=== PATIENT | male | born 1980 | race Caucasian/White ===

== ENCOUNTER → 2019-08-05 07:42 | Outpatient (BNVA) | payer MEDICAID, SELFPAY | PROVIDERS: Family Provider Family Medicine; PCP Family Medicine; Visit Provider Nurse Practitioner Psychiatric/Mental Health | DX: F31.64 Bipolar disorder, current episode mixed, severe, with psychotic features (principal); F43.12 Post-traumatic stress disorder, chronic; F78 Other intellectual disabilities; F40.298 Other specified phobia | CPT/HCPCS: 99214 ==

== ENCOUNTER → 2019-10-15 08:38 | Outpatient (BNVA) | payer MEDICAID, SELFPAY | PROVIDERS: Family Provider Family Medicine; PCP Family Medicine; Visit Provider Nurse Practitioner Psychiatric/Mental Health | DX: F31.64 Bipolar disorder, current episode mixed, severe, with psychotic features (principal); F43.12 Post-traumatic stress disorder, chronic; F78 Other intellectual disabilities; F40.298 Other specified phobia | CPT/HCPCS: 99213 ==

== ENCOUNTER → 2020-01-06 07:18 | Outpatient (BNVA) | payer MEDICAID, SELFPAY | PROVIDERS: Family Provider Family Medicine; PCP Family Medicine; Visit Provider Nurse Practitioner Psychiatric/Mental Health | DX: F31.64 Bipolar disorder, current episode mixed, severe, with psychotic features (principal); F43.12 Post-traumatic stress disorder, chronic; F78 Other intellectual disabilities; F40.298 Other specified phobia | CPT/HCPCS: 99214 ==

== ENCOUNTER 2020-01-14 07:18 | Outpatient (CLI) | payer MEDICAID, SELFPAY ==
--- NOTE | 2020-01-14 08:00 | US_ITS ---
WS: [id number] ULTRASOUND RENAL TECHNIQUE: Ultrasound examination of both kidneys. CLINICAL INFORMATION: RENAL U/S@[facility] 01/14/20 9:30AM. APPT TO FOLLOW COMPARISON: None. FINDINGS: RIGHT: Right kidney is normal in size and appearance. Echogenicity: Normal. Cortical thickness: 1.1 cm; Normal. Hydronephrosis: None. Perinephric fluid: None. Right kidney measures: 12.0 cm x 5.5 cm x 5.9 cm. LEFT: Small left renal cyst millimeters Left kidney is normal in size and appearance. Echogenicity: Normal. Cortical thickness: 1.6 cm; Normal. Hydronephrosis: None. Perinephric fluid: None. Left kidney measures: 10.9 cm x 5.2 cm x 5.5 cm. Normal visualized aorta. Normal bladder. Prostate visualized measuring 3.5 x 2.0 cm. US/US renal BI* [id number] IMPRESSION: Normal renal ultrasound. Small left renal cyst 10millimeters.
== END 2020-01-14 07:19 | disposition home or self-care (01) ==
LOC: US 07:18
PROVIDERS: PCP Family Medicine; Visit Provider Urology
DX: N28.89 Other specified disorders of kidney and ureter (principal); N28.1 Cyst of kidney, acquired
CPT/HCPCS: 76770; 81001

== ENCOUNTER → 2020-02-04 07:34 | Outpatient (BNVA) | payer MEDICAID, SELFPAY | PROVIDERS: PCP Family Medicine; Visit Provider Nurse Practitioner Psychiatric/Mental Health | DX: F31.64 Bipolar disorder, current episode mixed, severe, with psychotic features (principal); F43.12 Post-traumatic stress disorder, chronic; F78 Other intellectual disabilities; F40.298 Other specified phobia; F60.3 Borderline personality disorder | CPT/HCPCS: 99213 ==

== ENCOUNTER → 2020-04-28 07:31 | Outpatient (BNVA) | payer MEDICAID, SELFPAY | PROVIDERS: PCP Family Medicine; Visit Provider Nurse Practitioner Psychiatric/Mental Health | DX: F31.64 Bipolar disorder, current episode mixed, severe, with psychotic features (principal); F43.12 Post-traumatic stress disorder, chronic; F78 Other intellectual disabilities; F40.298 Other specified phobia | CPT/HCPCS: 99213 ==

== ENCOUNTER 2020-07-15 07:33 | Outpatient (CLI) | payer MEDICAID, SELFPAY ==
--- NOTE | 2020-07-15 07:39 | CT_ITS ---
WS: [id number] CT ABDOMEN PELVIS TECHNIQUE: Noncontrast CT of the abdomen and contrast-enhanced CT of the abdomen and pelvis with stefanie nal and sagittal reformatted images. CLINICAL INFORMATION: hematuria COMPARISON: and ultrasound January 14, 2020 DLP: 4971.[address] scans at [facility] use at least one of these dose optimization techniques: automat ed exposure control; mA and/or kV adjustment per patient size (includes targeted exams where dose is matched to clinical indication); or iterative reconstruction. FINDINGS: Cortical exophytic lesion upper pole left kidney measuring 10 mm unchanged in appearance. This is too small to definitively characterize and recommend continued surveillance. Stable 12 mm left simple cyst mid pole left kidney is unchanged. Stable left adrenal lesion measuring 2.1 cm technically indeterminant but likely adrenal adenoma. No hydronephrosis in either kidney. Nor mal renal parenchymal enhancement. Diffuse fatty infiltration of the liver. Previously described area of decreased attenuation in the po rta hepatis no longer present today. Normal portal vein and splenic vein. Normal spleen. Normal GE ju nction. Lung bases are well aerated. Normal pancreas. Normal caliber abdominal aorta. Normal excretion on the delayed images. Normal bladder. Normal sigmoid colon. Mild disc bulging L5-S1 with degenerative disc disease. CT/CT abdomen pelvis wo/w [id number] IMPRESSION: 1. Low-attenuation cortical lesion upper pole left kidney medially appears unc hanged measuring 10 mm. This is too small to definitively characterize. Recomme nd continued surveillance. 2. Stable 12 mm simple cyst mid pole left kidney laterally. 3. No hydronephrosis in either kidney. 4. Stable 2.0 cm with adrenal lesion technically indeterminant but likely repr esents adrenal adenoma. 5. Diffuse fatty infiltration the liver. Previously described low-attenuation area in the erika hepatis has resolved. 6. No other significant changes from previous.
[2020-07-15] MEDS: iohexol 300 mg/mL 100 mL Btl IV (08:21)
== END 2020-07-15 07:34 | disposition home or self-care (01) ==
LOC: CT 07:34
PROVIDERS: PCP Family Medicine; Visit Provider Urology
DX: R31.9 Hematuria, unspecified (principal); N28.9 Disorder of kidney and ureter, unspecified; N28.1 Cyst of kidney, acquired; K76.0 Fatty (change of) liver, not elsewhere classified
CPT/HCPCS: 74178; 81003

== ENCOUNTER → 2020-08-11 07:34 | Outpatient (BNVA) | payer MEDICAID, SELFPAY | PROVIDERS: PCP Family Medicine; Visit Provider Nurse Practitioner Psychiatric/Mental Health | DX: F31.64 Bipolar disorder, current episode mixed, severe, with psychotic features (principal); F43.12 Post-traumatic stress disorder, chronic; F78 Other intellectual disabilities; F40.298 Other specified phobia; Z79.899 Other long term (current) drug therapy | CPT/HCPCS: 99214 ==

== ENCOUNTER → 2020-08-13 07:59 | Outpatient (BNVA) | payer MEDICAID, SELFPAY | PROVIDERS: PCP Family Medicine; Visit Provider Nurse Practitioner Psychiatric/Mental Health | DX: Z79.899 Other long term (current) drug therapy (principal) | CPT/HCPCS: 80053; 80061; 83036 ==

== ENCOUNTER → 2020-11-03 13:49 | Outpatient (BNVA) | payer MEDICAID, SELFPAY | PROVIDERS: PCP Family Medicine; Visit Provider Nurse Practitioner Psychiatric/Mental Health | DX: F31.64 Bipolar disorder, current episode mixed, severe, with psychotic features (principal); F43.12 Post-traumatic stress disorder, chronic; F78 Other intellectual disabilities; F40.298 Other specified phobia | CPT/HCPCS: 99214 ==

== ENCOUNTER → 2021-01-28 07:27 | Outpatient (BNVA) | payer MEDICAID, SELFPAY | PROVIDERS: PCP Family Medicine; Visit Provider Nurse Practitioner Psychiatric/Mental Health | DX: F31.64 Bipolar disorder, current episode mixed, severe, with psychotic features (principal); F43.12 Post-traumatic stress disorder, chronic; F78 Other intellectual disabilities; F40.298 Other specified phobia | CPT/HCPCS: 99214 ==

== ENCOUNTER → 2021-04-29 06:55 | Outpatient (BNVA) | payer MEDICAID, SELFPAY | PROVIDERS: PCP Family Medicine; Visit Provider Nurse Practitioner Psychiatric/Mental Health | DX: F31.64 Bipolar disorder, current episode mixed, severe, with psychotic features (principal); F43.12 Post-traumatic stress disorder, chronic; F40.298 Other specified phobia | CPT/HCPCS: 99214 ==

== ENCOUNTER → 2021-07-22 07:29 | Outpatient (BNVA) | payer MEDICAID, SELFPAY | PROVIDERS: PCP Family Medicine; Visit Provider Nurse Practitioner Psychiatric/Mental Health | DX: F31.64 Bipolar disorder, current episode mixed, severe, with psychotic features (principal); F43.12 Post-traumatic stress disorder, chronic; F40.298 Other specified phobia | CPT/HCPCS: 99214 ==

== ENCOUNTER → 2021-10-21 07:43 | Outpatient (BNVA) | payer MEDICAID, SELFPAY | PROVIDERS: PCP Family Medicine; Visit Provider Nurse Practitioner Psychiatric/Mental Health | DX: F31.64 Bipolar disorder, current episode mixed, severe, with psychotic features (principal); F43.12 Post-traumatic stress disorder, chronic; F40.298 Other specified phobia; Z79.899 Other long term (current) drug therapy | CPT/HCPCS: 80053; 80061; 82306; 83036; 84443; 99214 ==

== ENCOUNTER → 2021-12-02 08:38 | Outpatient (BNVA) | payer MEDICAID, SELFPAY | PROVIDERS: PCP Family Medicine; Visit Provider Nurse Practitioner Psychiatric/Mental Health | DX: F31.64 Bipolar disorder, current episode mixed, severe, with psychotic features (principal); F43.12 Post-traumatic stress disorder, chronic; F40.298 Other specified phobia; Z79.899 Other long term (current) drug therapy | CPT/HCPCS: 99214 ==

== ENCOUNTER 2022-07-12 08:31 | Outpatient (CLI) | payer MEDICAID, SELFPAY ==
[2022-07-12] MEDS: iohexol 350 mg/mL 500 mL Btl (per mL) IV (09:01)
--- NOTE | 2022-07-12 09:30 | CT_ITS ---
WS: [id number] CT ABDOMEN PELVIS TECHNIQUE: Noncontrast CT of the abdomen and contrast-enhanced CT of the abdomen and pelvis with stefanie nal and sagittal reformatted images. CLINICAL INFORMATION: Renal Mass COMPARISON: CT abdomen pelvis July 15, 2020 and DLP: 4098.[address] scans at [facility] use at least one of these dose optimization techniques: automated e xposure control; mA and/or kV adjustment per patient size (includes targeted exams where dose is matc hed to clinical indication); or iterative reconstruction. FINDINGS: Normal renal parenchymal enhancement. No hydronephrosis. LEFT renal cyst measuring 1.5 x 1.7 CM. Inde terminant solid appearing complex renal mass lower pole LEFT kidney measuring 2.1 x 1.9 CM. This is n ew or progressed compared to the prior examination suspicious for neoplasm. Additional smaller tiny renal cortical cysts some too small to characterize. No obstructing renal or ureteral calculi. Adrenal glands are normal. Normal excretion on the delayed images. Normal bladder f illing. Lung bases are well aerated. Slight atelectasis in the lingula. Diffuse fatty infiltration liver. Nor mal portal vein and splenic vein. Low-attenuation within the liver portal confluence is unchanged in appearance since 2019 likely due to focal fat. This is more apparent compared to July 15, 2020. Normal GE junction. Hyperdense enhancing LEFT adrenal lesion measuring 2.5 cm progressed compared to 2018 and 2019. This can be further evaluated with adrenal protocol CT. Normal pancreatic parenchymal enhancement. No periaortic or retroperitoneal lymphadenopathy. Normal s igmoid colon. No evidence of high-grade small or large bowel obstruction. Tiny fat-containing umbilic al hernia. Disc space narrowing worse L5-S1. CT/CT abdomen pelvis wo/w [id number] IMPRESSION: 1. Interval increase in size of the indeterminate heterogeneous enhancing LEFT adrenal nodule today measuring 2.5 cm increased from 2.0 cm 2019 and 1.8 cm in 2019. RIGHT adrenal gland is normal. This can be further evaluated with adrena l protocol CT. 2. No hydronephrosis in either kidney. Normal renal excretion. 3. Heterogeneously enhancing LEFT lower pole renal lesion measuring 1.9 x 2.0 cm appears new or increased since the prior 2 examinations suspicious for renal neoplasm. Recommend 6 month follow-up. 4. Additional tiny 10 mm cortical lesion upper pole LEFT kidney too small to characterize appears unchanged. 5. Low-attenuation change in the erika hepatis unchanged since 2019 likely due to focal fatty infiltration. 6. No other acute findings.
== END 2022-07-12 08:32 | disposition home or self-care (01) ==
LOC: RAD 08:32
PROVIDERS: PCP Family Medicine; Visit Provider Urology
DX: N28.89 Other specified disorders of kidney and ureter (principal); R31.29 Other microscopic hematuria; E27.8 Other specified disorders of adrenal gland
CPT/HCPCS: 74178; 81003; 99213; Q9967

== ENCOUNTER → 2022-08-19 08:52 | Outpatient (BNVA) | payer MEDICAID, SELFPAY | PROVIDERS: PCP Family Medicine; Visit Provider Orthopaedic Surgery | DX: M77.12 Lateral epicondylitis, left elbow (principal) | CPT/HCPCS: 20605; 99203; J0702; J3490 ==

== ENCOUNTER → 2022-09-21 09:35 | Outpatient (BNVA) | payer MEDICAID, SELFPAY | PROVIDERS: PCP Family Medicine; Visit Provider Nurse Practitioner Psychiatric/Mental Health | DX: Z79.899 Other long term (current) drug therapy (principal) | CPT/HCPCS: 80053; 80061; 83036 ==

== ENCOUNTER 2022-10-03 14:24 | Outpatient (CLI) | payer MEDICAID, SELFPAY ==
--- NOTE | 2022-10-03 15:00 | CTR_ITS ---
PROCEDURE INFORMATION: Exam: CT Abdomen And Pelvis Without And With Contrast Exam date and time: 10/03/2022 2:55 PM Age: 41 years old Clinical indication: Abnormal findings; Abnormal radiologic finding of the abdomen; Prior surgery; Surgery type: Hernia, back; Additional info: Adrenal nodule, CT adrenal protocol 10/03/22 @ 300 appointment to follow TECHNIQUE: Imaging protocol: Computed tomography of the abdomen and pelvis without and with contrast. Radiation optimization: All CT scans at this facility use at least one of these dose optimization techniques: automated exposure control; mA and/or kV adjustment per patient size (includes targeted exams where dose is matched to clinical indication); or iterative reconstruction. Contrast material: OMNI 350; Contrast volume: 95 ml; Contrast route: INTRAVENOUS (IV); REPORTING DATA: Count of CT and Cardiac NM exams in prior 12 months: This patient has received [address] and 0 known cardiac nuclear medicine studies in the 12 months prior to the current study. COMPARISON: CT abdomen pelvis wo/w [id number] 07/12/2022 8:57 AM RADIATION DOSE METRICS: Total DLP (mGy-cm): 2528.85 FINDINGS: Liver: Area of low attenuation around the erika hepatis is again seen, as noted with prior exam. Gallbladder and bile ducts: Normal. No calcified stones. No ductal dilation. Pancreas: Normal. No ductal dilation. Spleen: Normal. No splenomegaly. Adrenal glands: A fairly well rounded and slight heterogeneous mass of 2.5 cm is seen about the left adrenal gland, with Hounsfield measurements of 41 on the noncontrast exam, 115 on the early IV contrast exam, and 52 on the delayed contrast images, suggesting relative washout of greater than 40% on the delayed images. This would favor adrenal adenoma. Kidneys and ureters: Findings suggesting left renal cortical cyst is again seen, along with too small to characterize couple of hypodense foci that are likely additional tiny renal cortical cysts. Approximally 2 cm mildly heterogeneous low-density partially enhancing lower pole left kidney lesion appears unchanged with prior exam. Bilateral renal function excretion is seen without obstructive uropathy. Stomach and bowel: Unremarkable. No obstruction. No mucosal thickening. Appendix: No evidence of appendicitis. Intraperitoneal space: Unremarkable. No free air. No significant fluid collection. Vasculature: Unremarkable. No abdominal aortic aneurysm. Lymph nodes: Unremarkable. No enlarged lymph nodes. Urinary bladder: Unremarkable as visualized. Reproductive: Unremarkable as visualized. Bones/joints: Degenerative disc disease lumbosacral junction. Soft tissues: Tiny umbilical hernia of fat. No significant change otherwise with prior exam. CT/CT abdomen pelvis wo/w [id number] IMPRESSION: 1. Approximally 2.5 cm rounded left adrenal mass demonstrating relative washout of contrast on the delayed images of greater than 40%, favoring adrenal adenoma. Consider follow-up to ensure stability. 2. Findings suggestive of left renal cysts as noted with prior exam, as well as approximally 2 cm mildly heterogeneous low-density partially enhancing lower pole lesion, complex cyst versus mass. This is without significant change with prior exam. 3. Area of low attenuation around the erika hepatis, unchanged with prior exam.
[2022-10-03] MEDS: iohexol 350 mg/mL 500 mL Btl (per mL) IV (15:10)
== END 2022-10-03 14:25 | disposition home or self-care (01) ==
PROVIDERS: PCP Family Medicine; Visit Provider Urology
DX: E27.8 Other specified disorders of adrenal gland (principal); R35.89 Other polyuria; N28.89 Other specified disorders of kidney and ureter; R31.29 Other microscopic hematuria
CPT/HCPCS: 74178; 81003; 99213; Q9967

== ENCOUNTER → 2022-11-22 06:59 | Outpatient (BNVA) | payer MEDICAID, SELFPAY | PROVIDERS: PCP Family Medicine; Referring Provider Family Medicine; Visit Provider Internal Medicine | DX: E11.40 Type 2 diabetes mellitus with diabetic neuropathy, unspecified (principal); N28.89 Other specified disorders of kidney and ureter; Z79.4 Long term (current) use of insulin | CPT/HCPCS: 36415; 80048; 80053; 80061; 82044; 83036; 99204 ==

== ENCOUNTER 2022-11-25 07:57 | Outpatient (CLI) | payer MEDICAID, SELFPAY ==
[2022-11-28 01:59] LABS: C-Peptide 1.06 ng/mL (0.80-3.85)
[2022-12-09 20:11] LABS: GAD 65 IA-2 Antibody <5.4 U/mL (<5.4); GAD Insulin Autoantibody 2.3 U/mL (<0.4); Glutamic Acid Decarboxylase 65 <5 IU/mL (<5)
== END 2022-11-25 07:58 | disposition home or self-care (01) ==
LOC: LAB 08:01
PROVIDERS: PCP Family Medicine; Visit Provider Internal Medicine
DX: E11.9 Type 2 diabetes mellitus without complications (principal)
CPT/HCPCS: 36415; 84681; 86337; 86341

== ENCOUNTER → 2023-01-05 07:36 | Outpatient (BNVA) | payer MEDICAID, SELFPAY | PROVIDERS: PCP Family Medicine; Visit Provider Internal Medicine | DX: E11.40 Type 2 diabetes mellitus with diabetic neuropathy, unspecified (principal); E78.5 Hyperlipidemia, unspecified; Z79.4 Long term (current) use of insulin | CPT/HCPCS: 99214 ==

== ENCOUNTER 2023-02-21 06:38 | Outpatient (CLI) | payer MEDICAID, SELFPAY ==
[2023-02-21 07:32] LABS: Creatinine Urine, Random 182 mg/dL (39-259); Microalbum Creatinine Ratio Ur 5 mg/dL (0-20); Microalbumin Random Urine 1 ug/dL (0-20)
[2023-02-21 07:39] LABS: Alanine Aminotransferase 8 U/L (0-41); Albumin Level 4.1 g/dL (3.5-5.2); Alkaline Phosphatase 75 U/L (40-130); Anion Gap 14.5 (5-19); Aspartate Amino Transferase 14 U/L (0-40); Blood Urea Nitrogen 9 mg/dL (6-20); Calcium 9.1 mg/dL (8.5-10.5); Carbon Dioxide 29 mmol/L (22-29); Chloride 99 mmol/L (98-107); Chol HDL Ratio 2.81 mg/dL (1.0-5.00); Cholesterol 132 mg/dL (0-200); Glomerular Filtration Rate 91.7 mL/min (90-130); Glucose 213 mg/dL (65-115); HDL Cholesterol 47 mg/dL (60-100); LDL Cholesterol Calculated 71 mg/dL (50-129); LDL HDL Ratio 1.51 RATIO (0.00-3.22); Osmolality Calculated 293 mOsm/kg (285-295); Potassium 3.5 mmol/L (3.5-5.1); Sodium 139 mmol/L (136-145); Total Bilirubin 0.4 mg/dL (0.15-1.2); Total Protein 7.1 g/dL (6.6-8.7); Triglycerides 71 mg/dL (0-150)
[2023-02-21 07:41] LABS: Estmated Average Glucose 200; Hemoglobin A1C 8.6 % (4.0-6.0)
== END 2023-02-21 06:39 | disposition home or self-care (01) ==
PROVIDERS: PCP Family Medicine; Visit Provider Internal Medicine
DX: E11.9 Type 2 diabetes mellitus without complications (principal)
CPT/HCPCS: 36415; 80053; 80061; 82044; 83036

== ENCOUNTER → 2023-02-23 10:06 | Outpatient (BNVA) | payer MEDICAID, SELFPAY | PROVIDERS: PCP Family Medicine; Visit Provider Internal Medicine | DX: E78.2 Mixed hyperlipidemia; E55.9 Vitamin D deficiency, unspecified; E11.40 Type 2 diabetes mellitus with diabetic neuropathy, unspecified; Z79.4 Long term (current) use of insulin | CPT/HCPCS: 99214 ==

== ENCOUNTER → 2023-03-29 09:26 | Outpatient (BNVA) | payer MEDICAID, SELFPAY | PROVIDERS: PCP Family Medicine; Visit Provider Internal Medicine Cardiovascular Disease | DX: Z79.899 Other long term (current) drug therapy (principal) | CPT/HCPCS: 93005 ==

== ENCOUNTER → 2023-03-30 10:25 | Outpatient (BNVA) | payer MEDICAID, SELFPAY | PROVIDERS: PCP Family Medicine; Visit Provider Internal Medicine | DX: E78.2 Mixed hyperlipidemia; E55.9 Vitamin D deficiency, unspecified; E11.65 Type 2 diabetes mellitus with hyperglycemia; Z79.4 Long term (current) use of insulin | CPT/HCPCS: 99214 ==

== ENCOUNTER 2023-06-09 08:31 | Emergency (ER) | payer MEDICAID, SELFPAY ==
[2023-06-09 08:37] VITALS: BP 116/76; PULSE 77; RESP 18; TEMP 36.7; O2SAT 97; BMI 28.2
--- NOTE | 2023-06-09 08:46 | XRR_ITS ---
PROCEDURE INFORMATION: Exam: XR Chest Exam date and time: 06/09/2023 9:16 AM Age: 42 years old Clinical indication: Cough; Additional info: Dyspnea/cough TECHNIQUE: Imaging protocol: Radiologic exam of the chest. Views: 1 view. COMPARISON: CR XR chest 1V [id number] 06/14/2018 3:42 AM FINDINGS: Lungs: Unremarkable. No consolidation. Pleural spaces: Unremarkable. No pleural effusion. No pneumothorax. Heart/Mediastinum: Unremarkable. No cardiomegaly. Bones/joints: Unremarkable. XR/XR chest 1V portable [id number] IMPRESSION: No acute findings.
--- NOTE | 2023-06-09 08:46 | ECG_ITS ---
[facility] Test Date: 2023-06-09 Pat Name: Ash Pate Department: Room: Gender: Male Paper Folder: : 1980 Requested By: Thomas Coy Order Number: [id number] Nola MD: Lili Castro M.D. Measurements Intervals [place] Rate: 66 P: 62 NM: 182 QRS: 84 QRSD: 94 T: 60 QT: 372 QTc: 392 Interpretive Statements SINUS RHYTHM Right axis deviation No other significant abnormality noted Compared to previous EKG 06/14/2018, no significant change Electronically Signed On 06-09-2023 13:59:49 INGOT PASSER by Lili Castro M.D. [id number]
--- NOTE | 2023-06-09 09:22 | ED_ITS ---
HPI - Chest Pain General: Chief Complaint: Chest Pain Stated Complaint: reported chest tightness Time Seen by Provider: 06/09/23 08:39 Source: patient Mode of arrival: ambulatory History of Present Illness: 42-year-old male presents emergency room he said chest pain for last 5 to 6 days. Its been continuous he has not noticed anything other than bending over that makes it worse. Denies any hematemesis or coffee-ground emesis but he has had a little bit of a cough recently. No known history of coronary artery disease MD complaint: chest pain Onset (ago): day(s) (6) Timing of current episode: constant Prior episodes: Yes Onset: during rest Pain location: substernal Pain radiation: none Severity: mild Quality: aching Relieving factors: nothing Exacerbating factors: nothing Associated symptoms: Deny abdominal pain, diaphoresis, dyspnea, fever(s), leg edema, nausea, palpitations, sense of impending doom, syncope or vomiting Treatment prior to arrival: none Review of Systems Const: Denies: fever(s), chills or diaphoresis Card: Denies: chest pain, palpitations or syncope Resp: Denies: dyspnea GI: Denies: abdominal pain, nausea or vomiting : Denies: dysuria, urinary frequency or urinary urgency Musc: Denies: neck pain or back pain Skin/Breast: Denies: rash PFSH ED PFSH: Medical History Adrenal nodule Bipolar disorder, current episode mixed, severe, with psychotic features Chronic post-traumatic stress disorder Left renal mass Microhematuria Other intellectual disabilities Other specified phobia Polydipsia Polyuria Psychiatric care Surgical History History of back surgery Hx of hernia repair Family History Father Dementia Mother Stroke Other CAD (coronary artery disease) Cancer Diabetes Social History Smoking and tobacco/nicotine status: former use of tobacco/nicotine Alcohol intake: current Alcohol intake frequency: holidays/special occasions only Substance/Drug Use: never Adopted: No Caregiver/support person: No Marital status: Current occupational status: disabled Physical Exam Const: COMMON NORMALS: no acute distress GENERAL APPEARANCE: cooperative and comfortable ORIENTATION/CONSCIOUSNESS: Yes awake, Yes oriented to person, Yes oriented to place and Yes oriented to time HENMT: COMMON NORMALS: normocephalic, atraumatic and hearing grossly normal bilaterally HEAD & SCALP: normocephalic and atraumatic Resp: COMMON NORMALS: normal respiratory effort, No retractions, No use of accessory muscles and clear to auscultation bilaterally AUSCULTATION: clear to auscultation bilaterally Cardio: COMMON NORMALS: regular rate, regular rhythm and No murmurs present (Cardio) RATE: regular rate RHYTHM: regular rhythm GI: COMMON NORMALS: Soft to palpation and No hepatosplenomegaly present AUSCULTATION: Yes normoactive bowel sounds PALPATION: Yes Soft to palpation, No Tenderness to palpation present (GI), No Guarding due to palpation present (GI) and Yes No hepatosplenomegaly present Extremity: COMMON NORMALS: normal to inspection, capillary refill normal, no clubbing, cyanosis or edema, no calf tenderness and no pedal edema Neuro: SENSORIUM/ORIENTATION: Yes oriented to person, Yes oriented to place and Yes oriented to time Skin: COMMON NORMALS: no rashes or lesions noted GENERAL SKIN EXAM: no rashes or lesions noted Course Vital Signs: Vital signs: Vital Signs Temperature 98.1 F 06/09/23 08:37 Pulse Rate 77 06/09/23 08:37 Respiratory Rate 18 06/09/23 08:37 Blood Pressure 116/76 06/09/23 08:37 Pulse Oximetry 97 06/09/23 08:37 Oxygen Delivery Me thod Room Air 06/09/23 08:37 MDM - Chest Pain Medical Decision Making Troponin EKG did not show any acute changes EKG is normal sinus rhythm no acute ST changes. Avoid strenuous activity start aspirin daily as well as Protonix follow-up with primary care we will set up for an outpatient Lexiscan sestamibi stress test. Medical Records I reviewed the patient's medical records. Lab Data I reviewed the patient's lab results. 06/09/23 09:14 06/09/23 09:14 Radiology Impressions Chest X-Ray 06/09/23 08:46 IMPRESSION: No acute findings. Laboratory Results WBC 10.73 10^3/uL (3.29-11.43) 06/09/23 09:14 RBC 5.55 10^6/uL (3.85-5.65) 06/09/23 09:14 Hgb 15.50 g/dL (11.27-16.99) 06/09/23 09:14 Hct 45.2 % (37-53) 06/09/23 09:14 MCV 81.4 fl (82-101) L 06/09/23 09:14 MCH 27.9 pg (27-33) 06/09/23 09:14 MCHC 34.3 g/dL (30-55) 06/09/23 09:14 RDW 11.9 % (12.1-15.1) L 06/09/23 09:14 Plt Count 247 10^3/cmm (157-399) 06/09/23 09:14 MPV 9.6 fL (7.4-10.4) 06/09/23 09:14 Neut % (Auto) 62.3 % 06/09/23 09:14 Lymph % (Auto) 29.5 % 06/09/23 09:14 Lucas % (Auto) 7.3 % 06/09/23 09:14 Eos % (Auto) 0.3 % 06/09/23 09:14 Baso % (Auto) 0.3 % 06/09/23 09:14 Neut # (Auto) 6.69 10^3/uL (1.8-7.7) 06/09/23 09:14 Lymph # (Auto) 3.2 10^3/uL (0.8-4.8) 06/09/23 09:14 Lucas # (Auto) 0.8 10^3/uL (0.2-0.9) 06/09/23 09:14 Eos # (Auto) 0.0 10^3/uL (0.0-0.8) 06/09/23 09:14 Baso # (Auto) 0.0 10^3/uL (0.0-0.1) 06/09/23 09:14 Nucleated RBC % (auto) 0 % 06/09/23 09:14 Nucleated RBCs # 0.0 /100WBC 06/09/23 09:14 Sodium 137 mmol/L (136-145) 06/09/23 09:14 Potassium 4.1 mmol/L (3.5-5.1) 06/09/23 09:14 Chloride 97 mmol/L (98-107) L 06/09/23 09:14 Carbon Dioxide 29 mmol/L (22-29) 06/09/23 09:14 Anion Gap 15.1 (5-19) 06/09/23 09:14 BUN 7 mg/dL (6-20) 06/09/23 09:14 Creatinine 0.9 mg/dL (0.7-1.2) 06/09/23 09:14 GFR Calculation 91.7 mL/min (90-130) 06/09/23 09:14 Glucose 248 mg/dL (65-115) H 06/09/23 09:14 Calculated Osmolality 290 mOsm/kg (285-295) 06/09/23 09:14 Calcium 9.6 mg/dL (8.5-10.5) 06/09/23 09:14 Total Bilirubin 0.3 mg/dL (0.15-1.2) 06/09/23 09:14 AST 13 U/L (0-40) 06/09/23 09:14 ALT 10 U/L (0-41) 06/09/23 09:14 Alkaline Phosphatase 99 U/L (40-130) 06/09/23 09:14 Troponin T Baseline 14 ng/L (0-15) 06/09/23 09:14 Total Protein 7.3 g/dL (6.6-8.7) 06/09/23 09:14 Albumin 4.3 g/dL (3.5-5.2) 06/09/23 09:14 Globulin 3.0 g/dL (1.3-4.6) 06/09/23 09:14 All radiology interpretation(s) finalized by discharge Discharge Plan Discharge Patient Disposition: Home Clinical Impression: Atypical chest pain Condition: Stable Prescriptions: New pantoprazole 40 mg tablet,delayed release (DR/EC) 40 mg PO DAILY Qty: 30 0RF aspirin 81 mg tablet,delayed release (DR/EC) 81 mg PO DAILY Qty: 30 0RF No Action cholecalciferol (vitamin D3) 50,000 unit capsule 50,000 unit PO .Weekly balsalazide 750 mg capsule 2,250 mg PO TID loratadine 10 mg capsule 10 mg PO DAILY lisinopril-hydrochlorothiazide 20-25 mg tablet 1 tab PO QPM albuterol sulfate [ProAir HFA] 90 mcg/actuation HFA aerosol inhaler 2 puff INHALATION Q6H PRN (Reason: Shortness Of Breath) sennosides-docusate sodium [Stimulant Laxative Plus] 8.6-50 mg tablet 2 tab-cap PO BID PRN (Reason: Constipation) morphine 15 mg tablet 15 mg PO BID naloxone [Narcan] 4 mg/actuation spray,non-aerosol 4 mg intranasal Q2M PRN (Reason: opioid overdose) Qty: 2 3RF Rx Instructions: spray 1 dose into 1 nostril; alternate nostrils w ea dose until help arrive (DME) Dexcom G7 Armature Coil Winder Misc See Rx Instructions .Route Qty: 1 0RF Rx Instructions: As directed testosterone cypionate 200 mg/mL kit 100 mg SUBCUT Q14D Rx Instructions: Injection 0.5 ml every two weeks tadalafil [Cialis] 10 mg tablet 10 mg PO DAILY PRN (Reason: Sexual Activity) Rx Instructions: administer approximately 30min before sexual activity; do not use more than 1 dose per 24hrs polyethylene glycol 3350 [Miralax] 17 gram/dose powder 4 g PO DAILY PRN (Reason: constipation) (DME) pen needle, diabetic [BD Ultra-Fine Micro Pen Needle] 32 gauge x 1/4 needle See Rx Instructions .ROUTE .MEDSUPPLY Qty: 100 3RF Rx Instructions: four times daily (DME) Dexcom G7 Sensor Device See Rx Instructions .ROUTE .COMPLEX Qty: 9 0RF Dose Instruction: CHANGE every 10 DAYS Rx Instructions: CHANGE every 10 DAYS omeprazole 40 mg capsule,delayed release(DR/EC) 40 mg PO BID Levemir FlexPen 100 unit/mL (3 mL) Insulin Pen See Rx Instructions .ROUTE .COMPLEX Rx Instructions: INJECT 45 UNITS IN THE AM AND 40 UNITS IN THE PM hydroxyzine pamoate 50 mg capsule 50 mg PO BEDTIME PRN (Reason: anxiety) Geodon 20 mg capsule See Rx Instructions .ROUTE .COMPLEX Rx Instructions: Take two capsules in morning and one capsule in evening with 500 villa meal gabapentin 300 mg capsule 300 mg PO BEDTIME Novolog FlexPen U-100 Insulin 100 unit/mL (3 mL) insulin pen 5 unit SUBCUT BID rosuvastatin 10 mg tablet 10 mg PO DAILY Discharge Orders: Discharge ED (Routine); Ordered 06/09/23 Ordered By: Thomas Brar Referrals: Jose Luis Rubio MD [Primary Care Provider] - Discharge Diet: Usual diet Discharge Activity: Limit activity as instructed Patient Instructions: Opioid Safety, Pain Management Activity Restrictions/Additional Instructions: Thank you for choosing [facility] for your healthcare needs today. Please realize this is an emergency room and that we are providing you with a medical screening exam and this may not be complete and all inclusive of all the testing and or work up that you may need to determine your ailment or severity of your illness. It is very important that you follow up as instructed or that you return to the Emergency Department should you have concerns or if your condition changes or worsens in any way. You were seen today with complaint of chest pain and had for the last 5 days. Your cardiac enzymes and EKG were unremarkable. recommend you start aspirin daily as well as pantoprazole 40 mg daily. Avoid strenuous activity. Case management make arrangements for you to an outpatient Lexiscan sestamibi stress test. Coding Level of Care Code ED Counselor Marriage And Family for Robbi Cruz
[2023-06-09 09:35] LABS: Basophils % 0.3 %; Eosinophils % 0.3 %; Hematocrit 45.2 % (37-53); Lymphocytes # 3.2 10^3/uL (0.8-4.8); Lymphocytes % 29.5 %; Mean Corpuscular HGB Conc 34.3 g/dL (30-55); Mean Corpuscular Hemoglobin 27.9 pg (27-33); Mean Corpuscular Volume 81.4 fl (82-101); Mean Platelet Volume 9.6 fL (7.4-10.4); Monocytes # 0.8 10^3/uL (0.2-0.9); Monocytes % 7.3 %; Neutrophils # 6.69 10^3/uL (1.8-7.7); Neutrophils % 62.3 %; Nucleated Red Blood Cells % 0 %; Platelet Count 247 10^3/cmm (157-399); Red Blood Count 5.55 10^6/uL (3.85-5.65); Red Cell Distribution Width 11.9 % (12.1-15.1); White Blood Count 10.73 10^3/uL (3.29-11.43)
[2023-06-09 09:55] LABS: Alanine Aminotransferase 10 U/L (0-41); Albumin Level 4.3 g/dL (3.5-5.2); Alkaline Phosphatase 99 U/L (40-130); Anion Gap 15.1 (5-19); Aspartate Amino Transferase 13 U/L (0-40); Blood Urea Nitrogen 7 mg/dL (6-20); Calcium 9.6 mg/dL (8.5-10.5); Carbon Dioxide 29 mmol/L (22-29); Chloride 97 mmol/L (98-107); Glomerular Filtration Rate 91.7 mL/min (90-130); Glucose 248 mg/dL (65-115); Osmolality Calculated 290 mOsm/kg (285-295); Potassium 4.1 mmol/L (3.5-5.1); Sodium 137 mmol/L (136-145); Total Bilirubin 0.3 mg/dL (0.15-1.2); Total Protein 7.3 g/dL (6.6-8.7)
[2023-06-09 10:31] LABS: Troponin(5th) Baseline 14 ng/L (0-15)
== END 2023-06-09 11:11 | disposition home or self-care (01) ==
PROVIDERS: Emergency Provider Family Medicine; PCP Family Medicine
DX: R07.89 Other chest pain (principal); Z79.4 Long term (current) use of insulin; Z87.891 Personal history of nicotine dependence
CPT/HCPCS: 71045; 80053; 84484; 85025; 93005; 93010; 99285

== ENCOUNTER 2023-06-23 07:30 | Outpatient (CLI) | payer MEDICAID, SELFPAY ==
[2023-06-23 08:21] LABS: Estmated Average Glucose 212
[2023-06-23 08:26] LABS: Creatinine Urine, Random 36 mg/dL (39-259); Microalbum Creatinine Ratio Ur 28 mg/dL (0-20); Microalbumin Random Urine 1 ug/dL (0-20)
[2023-06-23 08:28] LABS: Alanine Aminotransferase 8 U/L (0-41); Albumin Level 4.5 g/dL (3.5-5.2); Alkaline Phosphatase 103 U/L (40-130); Aspartate Amino Transferase 15 U/L (0-40); Blood Urea Nitrogen 19 mg/dL (6-20); Calcium 9.9 mg/dL (8.5-10.5); Carbon Dioxide 24 mmol/L (22-29); Chloride 89 mmol/L (98-107); Chol HDL Ratio 3.04 mg/dL (1.0-5.00); Cholesterol 158 mg/dL (0-200); Globulin 3.4 g/dL (1.3-4.6); Glomerular Filtration Rate 72.7 mL/min (90-130); HDL Cholesterol 52 mg/dL (60-100); LDL Cholesterol Calculated 92 mg/dL (50-129); LDL HDL Ratio 1.77 RATIO (0.00-3.22); Osmolality Calculated 297 mOsm/kg (285-295); Sodium 130 mmol/L (136-145); Total Bilirubin 0.6 mg/dL (0.15-1.2); Total Protein 7.9 g/dL (6.6-8.7); Triglycerides 70 mg/dL (0-150)
[2023-06-23 08:42] LABS: 25 Hydroxy Vitamin D 50 ng/mL (30-100)
[2023-06-23 08:58] LABS: Anion Gap 20.8 (5-19); Potassium 3.8 mmol/L (3.5-5.1)
[2023-06-23 09:01] LABS: Glucose 550 mg/dL (65-115)
== END 2023-06-23 07:31 | disposition home or self-care (01) ==
LOC: LAB 07:30
PROVIDERS: PCP Family Medicine; Visit Provider Internal Medicine
DX: E78.2 Mixed hyperlipidemia; E55.9 Vitamin D deficiency, unspecified; E10.65 Type 1 diabetes mellitus with hyperglycemia; Z79.4 Long term (current) use of insulin
CPT/HCPCS: 80053; 80061; 82044; 82306; 83036; 99214

== ENCOUNTER 2023-06-29 06:51 | Outpatient (CLI) | payer MEDICAID, SELFPAY ==
--- NOTE | 2023-06-29 | ECG_ITS ---
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 Interpretive Statements NAME OF STUDY: EXERCISE SESTAMIBI STRESS TEST INDICATION: [Chest Pain] PROCEDURE: At the baseline, the patient's blood pressure was 117/71 mm Hg with a heart rate of 87 bpm and oxygen saturation of 96%. The baseline electrocardiogram showed normal sinus rhythm, right axis deviation. Possible old septal infarct. with ??? The patient exercised for 9 minutes on a [standard Miki protocol]. Patient attained a maximum heart rate of 163 beats per minute( 92 % of the maximum predicted heart rate) with a blood pressure at the peak exercise of 134/61mm Hg and oxygen saturation of 96%. The EKG at the peak exercise revealed no significant ST-T wave changes. Patient did not have any chest pain or any significant cardiac arrhythmias with the exercise. Study was terminated due to maximal effort. ??? During the recovery phase, there were no new changes. ??? Blood pressure at the end of the recovery phase was 142/56 mm Hg with a heart rate of 108 beats per minute and oxygen saturation of 96%. ??? CONCLUSION: 1. Normal EKG response to treadmill exercise. 2. No exercise-induced chest pain or cardiac arrhythmia. 3. Excellent exercise tolerance, attained a maximum of 10.2 METs RESULTS TO SHAYY COVARRUBIAS Electronically Signed On 07-03-2023 7:17:42 RISK ASSESSMENT CONSULTANT by Azalia Huggins M.D. [id number]
[2023-06-29 07:12] VITALS: BMI 27.8
--- NOTE | 2023-06-29 07:20 | NMCV_ITS ---
NM mars perf SPECT r/s* [id number] Ash Pate Age: 42 Gender: M : 1980 Exam Date: 06/29/2023 07:34 Ordering Phys: Thomas Brar DO Technologist: GERALD Reece Exam Location: [facility] Indications: CHEST PAIN STRESS TEST Please see separate stress test report in [facility] for full findings IMAGE PROTOCOL Rest/Stress 1 Exercise Day Radiopharmaceutical Dose (mCi) Administration Site Administered by Rest: Tc-99m 10.7 IV GERALD Pro Sestamibi Stress:Tc-99m 32.5 IV GERALD Pro Sestamibi Rest: 29-Jun-2023 60 Discovery 630 Stress: 29-Jun-2023 30 Discovery 630 Radiopharmaceutical was injected at 87 % maximum heart rate. Images obtained in supine and prone position. SPECT RESULTS Technical Quality: Excellent Raw Data Analysis: Normal Image Corrections: No attenuation or motion correction applied Summed Stress Score: 0 Summed Rest Score: 1 Summed Difference Score: 0 PERFUSION FINDINGS SPECT images demonstrate homogeneous tracer distribution throughout the myocardium. FUNCTIONAL RESULTS (calculated via Gated SPECT) Stress Image LV EF (%): 72 Stress EDV (mL):90 TID: 0.84 Stress ESV (mL):25 FUNCTIONAL FINDINGS: The left ventricle is normal in size. Transient Ischemia Dilatation of 0.84. The left ventricular ejection fraction is normal with a value of 72%. There is normal left ventricular systolic function. There is normal left ventricular wall thickening. Normal end diastolic and end systolic volumes. IMPRESSIONS 1. Myocardial perfusion imaging is normal. 2. Overall left ventricular systolic function is normal without regional wall motion abnormalities, LVEF=72%. 3. Good exercise capacity. Normal EKG response to exercise. Refer to separate report for details. 4. Scan indicates low risk for cardiac events. Azalia Huggins MD (Electronically Signed) Final Date: 03 July 2023 07:12 S
[2023-06-29 08:34] VITALS: BP 142/56; PULSE 108
== END 2023-06-29 06:52 | disposition home or self-care (01) ==
LOC: CDL 06:52
PROVIDERS: PCP Family Medicine; Visit Provider Family Medicine
DX: R07.89 Other chest pain (principal)
CPT/HCPCS: 36415; 78452; 93017; 96374; A9500

== ENCOUNTER 2023-10-24 07:31 | Outpatient (CLI) | payer MEDICAID, SELFPAY ==
[2023-07-13 14:35] VITALS: BP 142/56; BMI 27.9
[2023-10-24 08:38] LABS: 25 Hydroxy Vitamin D 58 ng/mL (30-100); Alanine Aminotransferase 12 U/L (0-41); Albumin Level 4.3 g/dL (3.5-5.2); Alkaline Phosphatase 80 U/L (40-130); Anion Gap 15.3 (5-19); Aspartate Amino Transferase 21 U/L (0-40); Blood Urea Nitrogen 8 mg/dL (6-20); Calcium 9.5 mg/dL (8.5-10.5); Carbon Dioxide 27 mmol/L (22-29); Chloride 100 mmol/L (98-107); Cholesterol 122 mg/dL (0-200); Glomerular Filtration Rate 91.3 mL/min (90-130); Glucose 125 mg/dL (65-115); HDL Cholesterol 47 mg/dL (60-100); LDL Cholesterol Calculated 66 mg/dL (50-129); Osmolality Calculated 286 mOsm/kg (285-295); Potassium 4.3 mmol/L (3.5-5.1); Sodium 138 mmol/L (136-145); Total Bilirubin 0.3 mg/dL (0.15-1.2); Total Protein 7.3 g/dL (6.6-8.7); Triglycerides 46 mg/dL (0-150)
[2023-10-24 08:51] LABS: Creatinine Urine, Random 89 mg/dL (39-259); Microalbum Creatinine Ratio Ur 11 mg/dL (0-20); Microalbumin Random Urine 1 ug/dL (0-20)
[2023-10-24 09:14] LABS: Estmated Average Glucose 177; Hemoglobin A1C 7.8 % (4.0-6.0)
== END 2023-10-24 07:32 | disposition home or self-care (01) ==
LOC: LAB 07:32
PROVIDERS: PCP Family Medicine; Visit Provider Internal Medicine
DX: E11.9 Type 2 diabetes mellitus without complications (principal); E55.9 Vitamin D deficiency, unspecified
CPT/HCPCS: 36415; 80053; 80061; 82044; 82306; 83036

== ENCOUNTER → 2023-10-25 10:19 | Outpatient (BNVA) | payer MEDICAID, SELFPAY ==
[2023-07-13 14:35] VITALS: BP 142/56; BMI 27.9
== END ==
PROVIDERS: PCP Family Medicine; Visit Provider Internal Medicine
DX: E10.65 Type 1 diabetes mellitus with hyperglycemia (principal); E78.2 Mixed hyperlipidemia; E55.9 Vitamin D deficiency, unspecified; Z79.4 Long term (current) use of insulin
CPT/HCPCS: 99214

== ENCOUNTER 2024-02-01 10:19 | Outpatient (CLI) | payer OTHER, SELFPAY ==
[2023-12-15 15:27] VITALS: BP 104/64; BMI 29.1
[2024-02-01 11:04] LABS: Estmated Average Glucose 197; Hemoglobin A1C 8.5 % (4.0-6.0)
[2024-02-01 11:06] LABS: Alanine Aminotransferase 17 U/L (0-41); Albumin Level 4.2 g/dL (3.5-5.2); Alkaline Phosphatase 77 U/L (40-130); Anion Gap 16.8 (5-19); Aspartate Amino Transferase 26 U/L (0-40); Blood Urea Nitrogen 7 mg/dL (6-20); Calcium 8.7 mg/dL (8.5-10.5); Carbon Dioxide 25 mmol/L (22-29); Chloride 98 mmol/L (98-107); Chol HDL Ratio 2.35 mg/dL (1.0-5.00); Cholesterol 115 mg/dL (0-200); Globulin 2.9 g/dL (1.3-4.6); Glomerular Filtration Rate 91.3 mL/min (90-130); Glucose 225 mg/dL (65-115); HDL Cholesterol 49 mg/dL (60-100); LDL Cholesterol Calculated 49 mg/dL (50-129); Osmolality Calculated 287 mOsm/kg (285-295); Potassium 3.8 mmol/L (3.5-5.1); Sodium 136 mmol/L (136-145); Total Bilirubin 0.4 mg/dL (0.15-1.2); Total Protein 7.1 g/dL (6.6-8.7); Triglycerides 85 mg/dL (0-150)
[2024-02-01 11:14] LABS: Creatinine Urine, Random 86 mg/dL (39-259); Microalbum Creatinine Ratio Ur 12 mg/dL (0-20); Microalbumin Random Urine 1 ug/dL (0-20)
== END 2024-02-01 10:20 | disposition home or self-care (01) ==
LOC: LAB 10:21
PROVIDERS: PCP Family Medicine; Visit Provider Internal Medicine
DX: E10.65 Type 1 diabetes mellitus with hyperglycemia (principal); E78.2 Mixed hyperlipidemia; E55.9 Vitamin D deficiency, unspecified; Z79.4 Long term (current) use of insulin
CPT/HCPCS: 36415; 80053; 80061; 82044; 83036; 99214

== ENCOUNTER → 2024-03-31 12:21 | Outpatient (BNVA) | payer MEDICAID, SELFPAY ==
[2024-02-08 09:21] VITALS: BP 105/62; BMI 28.0
== END ==
PROVIDERS: PCP Family Medicine; Visit Provider Emergency Medicine
DX: J02.9 Acute pharyngitis, unspecified (principal); R50.9 Fever, unspecified
CPT/HCPCS: 87071; 87400; 87426; 87880

== ENCOUNTER 2024-04-22 07:33 | Outpatient (CLI) | payer MEDICAID, SELFPAY ==
[2024-02-08 09:21] VITALS: BP 105/62; BMI 28.0
[2024-04-22 08:17] LABS: Alanine Aminotransferase 30 U/L (0-41); Albumin Level 3.8 g/dL (3.5-5.2); Alkaline Phosphatase 85 U/L (40-130); Anion Gap 14.3 (5-19); Aspartate Amino Transferase 30 U/L (0-40); Blood Urea Nitrogen 6 mg/dL (6-20); Calcium 8.5 mg/dL (8.5-10.5); Carbon Dioxide 28 mmol/L (22-29); Chloride 94 mmol/L (98-107); Chol HDL Ratio 2.67 mg/dL (1.0-5.00); Cholesterol 104 mg/dL (0-200); Globulin 3.8 g/dL (1.3-4.6); Glomerular Filtration Rate 104.5 mL/min (90-130); Glucose 259 mg/dL (65-115); HDL Cholesterol 39 mg/dL (60-100); LDL Cholesterol Calculated 50 mg/dL (50-129); LDL HDL Ratio 1.28 RATIO (0.00-3.22); Osmolality Calculated 283 mOsm/kg (285-295); Potassium 3.3 mmol/L (3.5-5.1); Sodium 133 mmol/L (136-145); Total Bilirubin 0.5 mg/dL (0.15-1.2); Total Protein 7.6 g/dL (6.6-8.7); Triglycerides 74 mg/dL (0-150)
[2024-04-22 08:22] LABS: Creatinine Urine, Random 45 mg/dL (39-259); Microalbum Creatinine Ratio Ur 22 mg/dL (0-20); Microalbumin Random Urine 1 ug/dL (0-20)
[2024-04-22 08:25] LABS: Estmated Average Glucose 255; Hemoglobin A1C 10.5 % (4.0-6.0)
== END 2024-04-22 07:34 | disposition home or self-care (01) ==
LOC: LAB 07:33
PROVIDERS: PCP Family Medicine; Visit Provider Internal Medicine
DX: E10.65 Type 1 diabetes mellitus with hyperglycemia (principal); E78.2 Mixed hyperlipidemia; E55.9 Vitamin D deficiency, unspecified
CPT/HCPCS: 36415; 80053; 80061; 82044; 83036; 99214

== ENCOUNTER 2024-05-01 07:29 | Outpatient (CLI) | payer MEDICAID, SELFPAY ==
[2024-04-22 13:49] VITALS: BP 112/71; BMI 26.8
[2024-05-01 08:05] LABS: Anion Gap 13.1 (5-19); Blood Urea Nitrogen 13 mg/dL (6-20); Calcium 8.8 mg/dL (8.5-10.5); Carbon Dioxide 26 mmol/L (22-29); Chloride 92 mmol/L (98-107); Glomerular Filtration Rate 72.4 mL/min (90-130); Glucose 414 mg/dL (65-115); Osmolality Calculated 282 mOsm/kg (285-295); Potassium 4.1 mmol/L (3.5-5.1); Sodium 127 mmol/L (136-145)
[2024-05-01 08:19] LABS: 25 Hydroxy Vitamin D 38 ng/mL (30-100)
== END 2024-05-01 07:30 | disposition home or self-care (01) ==
LOC: LAB 07:29
PROVIDERS: PCP Family Medicine; Visit Provider Internal Medicine
DX: E10.65 Type 1 diabetes mellitus with hyperglycemia (principal); E78.2 Mixed hyperlipidemia; E55.9 Vitamin D deficiency, unspecified
CPT/HCPCS: 36415; 80048; 82306

== ENCOUNTER 2024-05-10 13:34 | Outpatient (CLI) | payer MEDICAID, SELFPAY ==
[2024-04-22 13:49] VITALS: BP 112/71; BMI 26.8
--- NOTE | 2024-05-10 | CTR_ITS ---
[facility] Final Radiology Report Call: [phone] assistance Online chat: [email or web address] Name: ALDA CUEVAS Age: 43Years M Date: 05/10/2024 SSN: -- : [id number] Study: CT ABDOMEN/PELVIS W Requesting Physician: MYRNA SMALL Images: 246 Add?l Studies: Provided Clinical History: RENAL CELL CARCINOMA Page 1 of 2 PROCEDURE INFORMATION: Exam: CT Abdomen And Pelvis With Contrast Exam date and time: 05/10/2024 2:34 PM Age: 43 years old Clinical indication: Condition or disease; Cancer; Kidney, left; Primary cancer: Renal cell carcinoma; Prior surgery; Surgery date: 6+ months; Surgery type: Partial L nephrectomy 11/2022 TECHNIQUE: Imaging protocol: Computed tomography of the abdomen and pelvis with contrast. Radiation optimization: All CT scans at this facility use at least one of these dose optimization techniques: automated exposure control; mA and/or kV adjustment per patient size (includes targeted exams where dose is matched to clinical indication); or iterative reconstruction. Contrast material: OMNI 350; Contrast volume: 100 ml; Contrast route: INTRAVENOUS (IV); COMPARISON: CT abdomen pelvis wo/w [id number] 10/03/2022 2:55 PM RADIATION DOSE METRICS: Total DLP (mGy-cm): 551.93 FINDINGS: Liver: Normal. No mass. Gallbladder and biliary ducts: Normal. No calcified stones. No ductal dilation. Pancreas: Normal. No ductal dilation. Spleen: Normal. No splenomegaly. Adrenal glands: No significant interval change in a 2.5 cm left adrenal nodule. Kidneys and ureters: Partial nephrectomy along the lower pole of the left kidney. Mild fat stranding adjacent to the left lower pole may be related to postsurgical changes. A few tiny hypodensities in the renal cortices are too small to characterize but may represent cysts. Stomach and bowel: Moderate colonic stool. Appendix: No evidence of appendicitis. Intraperitoneal space: Unremarkable. No free air. No significant fluid collection. Vasculature: Unremarkable. No abdominal aortic aneurysm. Lymph nodes: Unremarkable. No enlarged lymph nodes. Urinary bladder: Unremarkable as visualized. Reproductive: Unremarkable as visualized. Bones/joints: Unremarkable. No acute fracture. Soft tissues: Unremarkable. IMPRESSION: 1. Partial left nephrectomy. Mild adjacent ill-defined soft tissue stranding may be related to postsurgical changes. No definite evidence of residual/recurrent disease. 2. No lymphadenopathy. 3. Stable 2.5 cm left adrenal nodule previously characterized on multiphase CT as a likely adenoma. 4. Moderate colonic stool. Correlate for constipation. COMMENTS: Consistent with the [employer]'s Incidental Findings Committee white paper (J Am Paulette Radiol 2018): Any incidental renal lesion less than 1 cm or classified as too small to characterize, or any incidental cystic renal lesion characterized as simple- appearing, is likely benign. No follow-up imaging is recommended for these lesions per consensus recommendations based on imaging criteria. Thank you for allowing us to participate in the care of your patient. Dictated and Authenticated by: Dom Wiley MD 05/10/2024 5:09 PM Central Time ([place] & [place]) NICANOR
== END 2024-05-10 13:35 | disposition home or self-care (01) ==
LOC: RAD 13:34
PROVIDERS: PCP Family Medicine; Visit Provider Family Medicine
DX: C64.2 Malignant neoplasm of left kidney, except renal pelvis (principal); Z90.5 Acquired absence of kidney; D35.02 Benign neoplasm of left adrenal gland; K59.00 Constipation, unspecified
CPT/HCPCS: 74177; Q9967

== ENCOUNTER → 2024-07-24 07:40 | Outpatient (BNVA) | payer MEDICAID, SELFPAY ==
[2024-04-22 13:49] VITALS: BP 112/71; BMI 26.8
== END ==
PROVIDERS: PCP Family Medicine; Visit Provider Internal Medicine
DX: E10.65 Type 1 diabetes mellitus with hyperglycemia (principal); E78.2 Mixed hyperlipidemia; E55.9 Vitamin D deficiency, unspecified; E87.6 Hypokalemia
CPT/HCPCS: 99214

== ENCOUNTER → 2024-08-19 08:09 | Outpatient (BNVA) | payer MEDICAID, SELFPAY ==
[2024-04-22 13:49] VITALS: BP 112/71; BMI 26.8
== END ==
PROVIDERS: PCP Family Medicine; Referring Provider Internal Medicine; Visit Provider Psychiatry & Neurology Neurology
DX: R20.2 Paresthesia of skin (principal); M79.2 Neuralgia and neuritis, unspecified; E10.65 Type 1 diabetes mellitus with hyperglycemia; M79.604 Pain in right leg; M79.605 Pain in left leg; M79.603 Pain in arm, unspecified
CPT/HCPCS: 99203

== ENCOUNTER → 2024-09-10 09:05 | Outpatient (BNVA) | payer MEDICAID, SELFPAY ==
[2024-04-22 13:49] VITALS: BP 112/71; BMI 26.8
== END ==
PROVIDERS: PCP Family Medicine; Visit Provider Podiatrist Foot & Ankle Surgery
DX: E10.65 Type 1 diabetes mellitus with hyperglycemia (principal); L60.3 Nail dystrophy; L84 Corns and callosities; M20.41 Other hammer toe(s) (acquired), right foot; M20.42 Other hammer toe(s) (acquired), left foot; M21.41 Flat foot [pes planus] (acquired), right foot; M21.42 Flat foot [pes planus] (acquired), left foot; M21.621 Bunionette of right foot; M21.622 Bunionette of left foot; E10.8 Type 1 diabetes mellitus with unspecified complications; Z79.4 Long term (current) use of insulin; M79.604 Pain in right leg; G62.9 Polyneuropathy, unspecified; M79.605 Pain in left leg; R20.2 Paresthesia of skin
CPT/HCPCS: 11056; 11721; 95913; 99203

== ENCOUNTER → 2024-10-07 09:11 | Outpatient (BNVA) | payer MEDICAID, SELFPAY ==
[2024-04-22 13:49] VITALS: BP 112/71; BMI 26.8
== END ==
PROVIDERS: PCP Family Medicine; Visit Provider Specialist
DX: G56.03 Carpal tunnel syndrome, bilateral upper limbs (principal)
CPT/HCPCS: 73130; 99204

== ENCOUNTER 2024-11-21 06:31 | Outpatient (CLI) | payer MEDICAID, SELFPAY ==
[2024-04-22 13:49] VITALS: BP 112/71; BMI 26.8
[2024-11-21 07:57] LABS: Estmated Average Glucose 166; Hemoglobin A1C 7.4 % (4.0-6.0)
[2024-11-21 07:58] LABS: Alanine Aminotransferase 28 U/L (0-41); Albumin Level 4.2 g/dL (3.5-5.2); Alkaline Phosphatase 69 U/L (40-130); Anion Gap 13.1 (5-19); Aspartate Amino Transferase 47 U/L (0-40); Blood Urea Nitrogen 10 mg/dL (6-20); Calcium 9.1 mg/dL (8.5-10.5); Carbon Dioxide 29 mmol/L (22-29); Chloride 99 mmol/L (98-107); Chol HDL Ratio 2.17 mg/dL (1.0-5.00); Cholesterol 115 mg/dL (0-200); Globulin 3.2 g/dL (1.3-4.6); Glomerular Filtration Rate 80.4 mL/min (90-130); Glucose 119 mg/dL (65-115); HDL Cholesterol 53 mg/dL (60-100); LDL Cholesterol Calculated 51 mg/dL (50-129); LDL HDL Ratio 0.96 RATIO (0.00-3.22); Osmolality Calculated 284 mOsm/kg (285-295); Potassium 4.1 mmol/L (3.5-5.1); Sodium 137 mmol/L (136-145); Total Bilirubin 0.5 mg/dL (0.15-1.2); Total Protein 7.4 g/dL (6.6-8.7); Triglycerides 55 mg/dL (0-150)
[2024-11-21 08:19] LABS: Creatinine Urine, Random 79 mg/dL (39-259); Microalbum Creatinine Ratio Ur 13 mg/dL (0-20); Microalbumin Random Urine 1 ug/dL (0-20)
== END 2024-11-21 06:32 | disposition home or self-care (01) ==
PROVIDERS: PCP Family Medicine; Visit Provider Internal Medicine
DX: E10.65 Type 1 diabetes mellitus with hyperglycemia (principal); E78.2 Mixed hyperlipidemia
CPT/HCPCS: 36415; 80053; 80061; 82044; 83036

== ENCOUNTER → 2024-12-10 07:59 | Outpatient (BNVA) | payer MEDICAID, SELFPAY ==
[2024-11-22 15:29] VITALS: BP 128/60; BMI 29.4
== END ==
PROVIDERS: PCP Family Medicine; Visit Provider Podiatrist Foot & Ankle Surgery
DX: E10.65 Type 1 diabetes mellitus with hyperglycemia (principal); L60.3 Nail dystrophy; L84 Corns and callosities; Z79.4 Long term (current) use of insulin
CPT/HCPCS: 11055; 11721

== ENCOUNTER → 2025-01-20 12:28 | Outpatient (BNVA) | payer MEDICAID, SELFPAY ==
[2025-01-13 10:48] VITALS: BP 128/60; BMI 29.4
== END ==
PROVIDERS: PCP Family Medicine; Visit Provider Psychiatry & Neurology Neurology
DX: R20.2 Paresthesia of skin (principal); G62.9 Polyneuropathy, unspecified; M79.603 Pain in arm, unspecified; M79.604 Pain in right leg; M79.605 Pain in left leg; E87.6 Hypokalemia; E55.9 Vitamin D deficiency, unspecified; E78.2 Mixed hyperlipidemia; E10.65 Type 1 diabetes mellitus with hyperglycemia
CPT/HCPCS: 36415; 80053; 80061; 82044; 82607; 82746; 83036; 83735; 83921; 84439; 84443; 84481; 85025; 85651; 86140; 86334; 86431; 86592; 86780; 99212

== ENCOUNTER → 2025-03-04 08:58 | Outpatient (BNVA) | payer MEDICAID, SELFPAY ==
[2025-01-13 10:48] VITALS: BP 128/60; BMI 29.4
== END ==
PROVIDERS: PCP Family Medicine; Visit Provider Internal Medicine
DX: E10.65 Type 1 diabetes mellitus with hyperglycemia (principal); E78.2 Mixed hyperlipidemia; E55.9 Vitamin D deficiency, unspecified; E87.6 Hypokalemia
CPT/HCPCS: 99214

== ENCOUNTER → 2025-03-10 10:30 | Outpatient (BNVA) | payer MEDICAID, SELFPAY ==
[2025-01-13 10:48] VITALS: BP 128/60; BMI 29.4
== END ==
PROVIDERS: PCP Family Medicine; Visit Provider Podiatrist Foot & Ankle Surgery
DX: E10.65 Type 1 diabetes mellitus with hyperglycemia (principal); L60.3 Nail dystrophy; L84 Corns and callosities; E10.621 Type 1 diabetes mellitus with foot ulcer; L97.512 Non-pressure chronic ulcer of other part of right foot with fat layer exposed; L03.115 Cellulitis of right lower limb; Z79.4 Long term (current) use of insulin
CPT/HCPCS: 11042; 11055; 11721; 73630; 87070; 87075; 87077; 87186; 87205; 99214

== ENCOUNTER → 2025-03-19 10:45 | Outpatient (BNVA) | payer MEDICAID, SELFPAY ==
[2025-01-13 10:48] VITALS: BP 128/60; BMI 29.4
== END ==
PROVIDERS: PCP Family Medicine; Visit Provider Podiatrist Foot & Ankle Surgery
DX: E10.65 Type 1 diabetes mellitus with hyperglycemia (principal); L60.3 Nail dystrophy; L84 Corns and callosities; E10.621 Type 1 diabetes mellitus with foot ulcer; L97.512 Non-pressure chronic ulcer of other part of right foot with fat layer exposed; L03.115 Cellulitis of right lower limb; Z79.4 Long term (current) use of insulin
CPT/HCPCS: 11055; 11721; 99213

== ENCOUNTER 2025-04-07 07:49 | Outpatient (CLI) | payer MEDICAID, SELFPAY ==
[2025-01-13 10:48] VITALS: BP 128/60; BMI 29.4
--- NOTE | 2025-04-07 07:55 | CT_ITS ---
WS: [id number] CT HEAD NONCONTRAST HISTORY: HEADACHE TECHNIQUE: Contiguous axial imaging performed through the brain. Bone and soft tissue windows. Sagittal and coronal reformats reviewed. All CT scans at [facility] use at least one of these dose optimization techniques: automated exposure control; mA and/or kV adjustment per patient size (includes targeted exams where dose is matched to clinical indication); or iterative reconstruction. DLP: 1089.98 mGy.cm COMPARISON: 12/25/2018 No acute intracranial hemorrhage, midline shift or mass effect. Mild bifrontal lobe atrophy. No prior infarcts. Ventricles: Normal size with no hydrocephalus. No inferior displacement of the cerebellar tonsils. Paranasal sinuses: As visualized are clear. Mastoid air cells: Well pneumatized. Calvarium and scalp: Skull is intact with no soft tissue edema or swelling. Small amount of cerumen in the LEFT external auditory canal. CT/CT head wo con* [id number] IMPRESSION: 1. Minimal bifrontal lobe atrophy. 2. No prior infarct or small vessel disease. 3. Normal size ventricles. 4. No cerebral edema.
== END 2025-04-07 07:50 | disposition home or self-care (01) ==
LOC: RAD 07:50
PROVIDERS: PCP Family Medicine; Visit Provider Family Medicine
DX: R51.9 Headache, unspecified (principal); G31.89 Other specified degenerative diseases of nervous system; H61.22 Impacted cerumen, left ear
CPT/HCPCS: 70450

== ENCOUNTER → 2025-04-09 08:36 | Outpatient (BNVA) | payer MEDICAID, SELFPAY ==
[2025-01-13 10:48] VITALS: BP 128/60; BMI 29.4
== END ==
PROVIDERS: PCP Family Medicine; Visit Provider Podiatrist Foot & Ankle Surgery
DX: E10.621 Type 1 diabetes mellitus with foot ulcer (principal); L97.512 Non-pressure chronic ulcer of other part of right foot with fat layer exposed; E10.8 Type 1 diabetes mellitus with unspecified complications; E10.65 Type 1 diabetes mellitus with hyperglycemia; L60.3 Nail dystrophy; L84 Corns and callosities; L03.115 Cellulitis of right lower limb; Z79.4 Long term (current) use of insulin
CPT/HCPCS: 11042; 87070; 87075; 87077; 87186; 87205; 99214

== ENCOUNTER → 2025-04-17 09:07 | Outpatient (BNVA) | payer MEDICAID, SELFPAY ==
[2025-01-13 10:48] VITALS: BP 128/60; BMI 29.4
== END ==
PROVIDERS: PCP Family Medicine; Visit Provider Podiatrist Foot & Ankle Surgery
DX: E10.621 Type 1 diabetes mellitus with foot ulcer (principal); L97.512 Non-pressure chronic ulcer of other part of right foot with fat layer exposed; E10.65 Type 1 diabetes mellitus with hyperglycemia; L60.3 Nail dystrophy; L84 Corns and callosities; L03.115 Cellulitis of right lower limb; Z79.4 Long term (current) use of insulin
CPT/HCPCS: 11042; 99214

== ENCOUNTER 2025-04-22 13:42 | Outpatient (CLI) | payer MEDICAID, SELFPAY ==
[2025-01-13 10:48] VITALS: BP 128/60; BMI 29.4
--- NOTE | 2025-04-22 14:30 | MR_ITS ---
WS: [id number] MRI RIGHT FOOT WITH AND WITHOUT CONTRAST. COMPARISON: Radiographs 03/10/2025 Multiplanar, multisequence imaging is performed with and without contrast. Sagittal and axial T1 fat sat sequences post-MultiHance 20 cc IV. Ill-defined soft tissue abnormality involving the plantar, dorsal and medial surfaces of the distal phalanx of the first toe. Soft tissue ulcer extends over a length of 1.5 cm x 1.1 x 1.4 cm. There is a focal well-circumscribed area of decreased signal which is probably either foreign body or related to debridement of the soft tissues. There is no fluid collection or abscess identified. There is increased T2 signal in nearly the entire distal phalanx of the first toe. Low signal on the T1 sequences. On the postcontrast imaging there is diffuse enhancement throughout the distal phalanx of the first toe. The soft tissues surrounding the first toe also enhance although there is no focal fluid collection. The soft tissue enhancement surrounds the entire first toe. No additional areas of abnormal enhancement. There is a small amount of increased T2 signal surrounding the flexor hallucis longus tendon as it extends between the sesamoid bones. There is a small amount of edema with mild enhancement at the level of the first metatarsal phalangeal joint. MR/MR foot RT wo/w con [id number] IMPRESSION: 1. Increased enhancement throughout the entire distal phalanx of the first toe highly suspicious for osteomyelitis. 2. There is marked soft tissue thickening with enhancement surrounding the ent suly first toe although there is no abscess. Extensive cellulitis involving the distal first toe. There is an additional soft tissue ulcer along the plantar an d medial first toe measuring 1.5 x 1.1 x 1.4 cm. Soft tissue tract extends to t he plantar surface of the toe. 3. Mild increased signal in the flexor hallucis longus tendon as it extends be tween the sesamoids of the first metatarsophalangeal joint.
[2025-04-22] MEDS: gadobenate dimeglumine 20 mL vial IV (14:55)
== END 2025-04-22 13:43 | disposition home or self-care (01) ==
LOC: RAD 13:43
PROVIDERS: PCP Family Medicine; Visit Provider Podiatrist Foot & Ankle Surgery
DX: L97.512 Non-pressure chronic ulcer of other part of right foot with fat layer exposed (principal); L03.031 Cellulitis of right toe
CPT/HCPCS: 73720

== ENCOUNTER → 2025-04-24 08:05 | Outpatient (BNVA) | payer MEDICAID, SELFPAY ==
[2025-01-13 10:48] VITALS: BP 128/60; BMI 29.4
== END ==
PROVIDERS: PCP Family Medicine; Visit Provider Podiatrist Foot & Ankle Surgery
DX: E10.621 Type 1 diabetes mellitus with foot ulcer (principal); L97.512 Non-pressure chronic ulcer of other part of right foot with fat layer exposed; L03.115 Cellulitis of right lower limb; L84 Corns and callosities; L60.3 Nail dystrophy; E10.65 Type 1 diabetes mellitus with hyperglycemia; M86.8X7 Other osteomyelitis, ankle and foot; Z79.4 Long term (current) use of insulin
CPT/HCPCS: 99214

== ENCOUNTER 2025-04-25 12:34 | Day surgery (SDC) | payer MEDICAID, SELFPAY ==
[2025-01-13 10:48] VITALS: BP 128/60; BMI 29.4
[2025-04-25 13:06] VITALS: BP 135/78; PULSE 86; RESP 18; TEMP 36.7; O2SAT 98; BMI 29.4
[2025-04-25 13:45] LABS: Anion Gap 17.7 (5-19); Blood Urea Nitrogen 14 mg/dL (6-20); Calcium 9.2 mg/dL (8.5-10.5); Carbon Dioxide 22 mmol/L (22-29); Chloride 100 mmol/L (98-107); Creatinine Clr Calc Pharmacy 118.6348; Glucose 155 mg/dL (65-115); Osmolality Calculated 286 mOsm/kg (285-295); Potassium 3.7 mmol/L (3.5-5.1); Sodium 136 mmol/L (136-145)
--- NOTE | 2025-04-25 14:28 | P.HPUD_ITS ---
Surgery/Procedure H&P Update DATE OF PROCEDURE: April 25, 2025 DATE H&P PERFORMED: 04/19/25 H&P UPDATE INFORMATION: I have reviewed H&P completed within last 30 days, I have examined patient prior to procedure, No changes to prior documentation, H&P is in [facility] EMR on date indicated and Risks and benefits of the procedure reviewed PREOP DIAGNOSIS: Osteomyelitis right great toe PLANNED PROCEDURE: Operation Date: 04/25/25 15:00 Proposed Procedures p Incision And Drainage Incision of Bone Cortex(Right) - Papito Mccain DPM s Partial amputation right great toe(Right) - Papito Mccain DPM
--- NOTE | 2025-04-25 14:34 | ANES.PREANE2 ---
Pre-Anesthetic Assessment Height/Weight: Height 1.88 m Weight 103.873 kg Temp Pulse Resp BP Pulse Ox O2 Del Method 98.1 F 86 18 135/78 98 Room Air 04/25/25 13:06 04/25/25 13:06 04/25/25 13:06 04/25/25 13:06 04/25/25 13:06 04/25/25 13:06 Preop Diagnosis: Osteomyelitis right great toe Operation Date: 04/25/25 15:00 Proposed Procedures p Incision And Drainage Incision of Bone Cortex(Right) - Papito Mccain DPM s Partial amputation right great toe(Right) - Papito Mccain DPM Familial anesthetic complications: None Was Beta Jose taken within 24 hours: N/A Was Clonidine taken within 24 hours: N/A Last intake: Intake Last Liquid Date 04/25/25 Last Liquid Time 01:00 Last Solid Date 04/24/25 Last Solid Time 16:00 Social No alcohol and No tobacco Exam alert, oriented x 3, clear to auscultation bilaterally and regular rate & rhythm Airway Mallampati: Class III Dentition: full Pulmonary Asthma CV/HEM Hypertension GI Gastroesophageal Reflux Disease Metabolic Diabetes Mellitus and Hyperlipidemia Anesthetic Plan ASA status: 3 Anesthesia: MAC Risk of > 500 ml blood loss (7ml/kg in children): No Medications/Allergies Home Medications ?Medication ?Instructions ?Recorded ?Confirmed ?Last Taken ?Type cholecalciferol (vitamin D3) 1,250 50,000 unit PO .Weekly 08/05/19 04/24/25 04/19/25 History mcg (50,000 unit) capsule albuterol sulfate 90 mcg/actuation 2 puff inhalation Q6H PRN 01/14/20 04/24/25 Unknown History aerosol inhaler (ProAir HFA) Shortness Of Breath balsalazide 750 mg capsule 2,250 mg PO TID 01/14/20 04/24/25 04/24/25 History lisinopril 20 1 tab PO QPM 01/14/20 04/24/25 04/23/25 History mg-hydrochlorothiazide 25 mg tablet loratadine 10 mg capsule 10 mg PO DAILY 01/14/20 04/24/25 04/24/25 History sennosides 8.6 mg-docusate sodium 2 tab-cap PO BID PRN Constipation 10/21/21 04/24/25 Unknown History 50 mg tablet (Stimulant Laxative Plus) testosterone cypionate 200 mg/mL 100 mg SUBCUT Q14D 12/02/21 04/24/25 Unknown History intramuscular kit morphine 15 mg immediate release 15 mg PO BID pain 06/28/22 04/24/25 04/24/25 History tablet naloxone 4 mg/actuation nasal 4 mg intranasal Q2M PRN opioid 06/28/22 04/24/25 Unknown Rx spray (Narcan) overdose #2 ea blood-glucose,senior backup administrator,cont #1 ea 11/22/22 04/24/25 Unknown Rx (Dexcom G7 Salon Shampoo Assistant) polyethylene glycol 3350 17 4 g PO DAILY PRN constipation 04/27/23 04/24/25 Unknown History gram/dose oral powder (Miralax) insulin aspart U-100 100 unit/mL 15 unit (0.15 mL) SUBCUT BID #30 mL 03/13/24 04/24/25 04/24/25 Rx (3 mL) subcutaneous pen (Novolog FlexPen U-100 Insulin aspart) insulin pump cartridge,auto #1 ea 06/25/24 04/24/25 Unknown Rx dose,BT,G6/G7 with controller subcutaneous (Omnipod 5 G6-G7 Intro Kit(Gen 5) subcutaneous cartridge and controller) fluticasone propionate 50 1 spray intranasal DAILY 08/19/24 04/24/25 Unknown History mcg/actuation nasal spray,suspension omeprazole 40 mg capsule,delayed 40 mg PO BID 08/19/24 04/24/25 04/25/25 History release tadalafil 20 mg tablet 20 mg PO DAILY PRN , 08/19/24 04/24/25 Unknown History tamsulosin 0.4 mg capsule 0.4 mg PO DAILY 08/19/24 04/24/25 04/23/25 History Diabetic shoes #1 ea 09/10/24 04/24/25 Unknown Rx hydroxyzine pamoate 50 mg capsule 50 mg PO TID PRN anxiety #90 caps 01/08/25 04/24/25 Unknown Rx ziprasidone HCl 20 mg capsule 60 mg (3 x 20 mg) PO DIRECTED 01/08/25 04/24/25 04/24/25 Rx (Geodon) #90 caps pen needle, diabetic 31 gauge x #100 ea 01/15/25 04/24/25 Unknown Rx 3/16 (TechLITE Pen Needle) blood-glucose sensor (Dexcom G7 #9 ea 02/24/25 04/24/25 Unknown Rx Sensor device) gabapentin 300 mg capsule 300 mg PO TID #90 caps 03/06/25 04/24/25 04/23/25 Rx CAM boot - weight bearing #1 ea 03/10/25 04/24/25 Unknown Rx rosuvastatin 10 mg tablet See Rx Instructions .Route 03/25/25 04/24/25 04/24/25 Rx .COMPLEX #90 tabs insulin pump cart,auto,BT,G6/7 #10 ea 04/21/25 04/24/25 Unknown Rx (Omnipod 5 G6-G7 Pods (Gen 5) subcutaneous cartridge) levofloxacin 750 mg tablet 750 mg PO DAILY 7 days #7 tabs 04/24/25 04/24/25 04/24/25 Rx Allergies Allergy/AdvReac Type Severity Reaction Status Date / Time hydrocodone Allergy Severe ADR-Vomitin Verified 04/24/25 08:07 g lamotrigine (From Lamictal) Allergy Severe ALGY-Hives Verified 04/24/25 08:07 Penicillins Allergy Severe ALGY-Rash Verified 04/24/25 08:07 Sulfa (Sulfonamide Allergy Severe ALGY-Rash Verified 04/24/25 08:07 Antibiotics) tizanidine Allergy Severe ALGY-Rash Verified 04/24/25 08:07 Current Medications Generic Name Dose Route Start Last Admin Trade Name Freq PRN Reason Stop Dose Admin Sodium Chloride 1,000 mls @ 30 mls/hr 04/25/25 13:15 04/25/25 13:13 Sodium Chloride 0.9% IV 04/26/25 13:14 30 mls/hr .Q24H WILLIAM Administration PFSH Anesthesia Medical History Psychiatric care Polydipsia Polyuria Microhematuria Adrenal nodule Left renal mass Other specified phobia Other intellectual disabilities Chronic post-traumatic stress disorder Bipolar disorder, current episode mixed, severe, with psychotic features Surgical History History of back surgery Hx of hernia repair Family History Father Dementia Mother Stroke Other CAD (coronary artery disease) Cancer Diabetes Social History Smoking and tobacco/nicotine status: never used tobacco/nicotine Alcohol intake: current Alcohol intake frequency: holidays/special occasions only Substance/Drug Use: never Adopted: No Caregiver/support person: No Marital status: Current occupational status: disabled Data Anesthesia 04/25/25 13:24 BMP 04/25/25 13:24 Sodium 136 Potassium 3.7 Chloride 100 Carbon Dioxide 22 BUN 14 Creatinine 1.0 Glucose 155 H Calcium 9.2 Cardiac Studies: Sestamibi Stress Test (Cardiology) 06/29/23
[2025-04-25] MEDS: BUPivacaine 0.5% INJ 30 mL 15 ML INJECTION (15:21)
[2025-04-25 15:45] VITALS: BP 107/73; PULSE 57; RESP 12; TEMP 36.8; O2SAT 96
[2025-04-25 15:50] VITALS: BP 106/74; PULSE 58; RESP 12; O2SAT 99
[2025-04-25 15:55] VITALS: BP 117/76; PULSE 62; RESP 16; O2SAT 93
[2025-04-25 16:00] VITALS: BP 125/81; PULSE 68; RESP 16; TEMP 36.4; O2SAT 97
[2025-04-25 16:06] VITALS: BP 133/77; PULSE 66; RESP 16; O2SAT 96
--- NOTE | 2025-04-25 16:26 | W.PM.BPON ---
Date of Procedure: 09/29/23 Surgeon: Papito Mccain DPM Artificial Flower Maker(s): Jennifer Procedure(s) performed: Incision of bone cortex and partial amputation right great toe. Findings of the procedure(s): Osteomyelitis distal phalanx right great toe Estimated blood loss: 2 mL Specimen(s) removed: Right great toe to pathology for permanent bone from right great toe distal phalanx to microbiology Post-operative diagnosis: Osteomyelitis right great toe
--- NOTE | 2025-04-25 16:27 | PM.OP ---
Operative Report Date of procedure: April 25, 2025 Pre-op diagnosis: Osteomyelitis right great toe. L97.514 Post-op diagnosis: Osteomyelitis right great toe. L97.514 Post-op findings: Osteomyelitis right great toe Procedure done: 1) incision of bone cortex right foot. CPT code 52762 2) partial amputation right great toe. CPT code 88397 Implants: No implants Specimens removed/disposition: Cultures previously taken Pathology: Right great toe sent to pathology for permanent Surgeon: Papito Mccain DPM Radial Drill Operator: Rashad Estimated blood loss: 2 mL 16 minutes IV fluids: See intraoperative documentation Urine output: No urine output Complications: No complications Brief History: Diabetic male has had a chronic wound right hallux suspicious clinically for deeper infection due to delayed healing and surrounding erythema probing deep but not directly to bone ordered an MRI with and without contrast due to this suspicion, MRI was performed 04/22/2025 highly suspicious for osteomyelitis of the entire great toe distal phalanx. Procedure: Under mild sedation the patient was brought to the operating room and remained on the gurney in supine position. Timeout was performed. Anesthesia was administered by the anesthesia service. Local anesthesia injected by myself consisting of 30 cc total of one-to-one mixture 1% lidocaine and 0.5% Marcaine plain in a right Larson block fashion. Well-padded pneumatic tourniquet applied to the right ankle. The right lower extremity was scrubbed, prepped and draped utilizing normal aseptic technique. Right foot was elevated and tourniquet inflated to 250 mmHg. No Esmarch utilized due to underlying infection. Attention was directed to the right hallux noted to have a full-thickness wound at the plantar aspect of the right hallux interphalange joint probe directly to bone. Incision was performed circumferentially in a fishmouth incision style with a #15 blade encompassing the right first metatarsal phalangeal joint allowing for plantar and dorsal viable soft tissue margins, the right great toe was sharply disarticulated through the metatarsal phalangeal joint and the right hallux was passed from operative field sent to pathology for gross anatomical review. Of note the wound extended to bone which demonstrated off simmons color and poor density consistent with osteomyelitis. The incision was irrigated with copious amounts of sterile saline solution, extensor and flexor tendons transected sharply under traction at the most proximal margin all bleeders were ligated and cauterized as necessary. The incision was then irrigated with Irrisept. Attention was directed to the first metatarsal through palpation as well as direct visualization at the first metatarsal head the medial incision was extended proximally to allow direct visualization of the first metatarsal which was incised down to bone cortex sharply and noted to have viable margins. After all debridement was performed including epidermis, dermis, subcutaneous tissue, myofascial layer and bone cortex no further devitalized tissue was appreciated, sesamoids were visualized and appeared to have normal viability without infectious process or devitalized tissue. Further irrigation was performed with Irrisept and sterile saline, all bleeders were ligated and cauterized as necessary. The incision was then approximated in a layered fashion with absorbable Vicryl suture at deep tissues and skin with nylon. The incision was dressed with Xeroform, sterile 4 x 4 gauze, Kerlix and Arnulfo wrap followed by application of a cam boot to the right lower extremity. Tourniquet was deflated and a prompt hyperemic response is noted to the remaining digits of the right foot. Patient tolerated the procedure and anesthesia well and was transferred to the PACU with vital signs stable and vascular status intact. Following a period of postoperative monitoring he will be discharged home without home care instructions and scheduled follow-up.
--- NOTE | 2025-04-25 16:35 | ANE.PACU2 ---
Inpatient post-anesthesia follow up: Airway intact: Yes Vital signs: Temperature 97.6 F Pulse Rate 66 Respiratory Rate 16 Blood Pressure 133/77 Pulse Oximetry 96 Oxygen Delivery Me thod Room Air Oxygen Flow Rate 8 Fraction of Inspir ed Oxygen Hydration adequate: Yes Nausea and vomiting: No Pain level: 1 Mental status: Baseline
== END 2025-04-25 16:39 | disposition home or self-care (01) ==
PROVIDERS: Anesthesiology; PCP Family Medicine; Visit Provider Podiatrist Foot & Ankle Surgery
PROC: (CPT 28005; 2025-04-25 14:50)
DX: L97.514 Non-pressure chronic ulcer of other part of right foot with necrosis of bone (principal); J45.909 Unspecified asthma, uncomplicated; K21.9 Gastro-esophageal reflux disease without esophagitis; E11.9 Type 2 diabetes mellitus without complications; E78.5 Hyperlipidemia, unspecified; I10 Essential (primary) hypertension; Z79.891 Long term (current) use of opiate analgesic; Z79.4 Long term (current) use of insulin; F43.12 Post-traumatic stress disorder, chronic; F31.64 Bipolar disorder, current episode mixed, severe, with psychotic features
CPT/HCPCS: 28005; 28825; 36415; 36416; 80048; 82962; 87070; 87075; 87176; 87205; 88305; 88311; J1100; J2405; J2704; J3010; J3490; J7030; J9999

== ENCOUNTER → 2025-05-06 07:51 | Outpatient (BNVA) | payer MEDICAID, SELFPAY ==
[2025-05-05 07:11] VITALS: BP 128/60; BMI 29.4
== END ==
PROVIDERS: PCP Family Medicine; Visit Provider Podiatrist Foot & Ankle Surgery
DX: Z98.890 Other specified postprocedural states (principal); Z89.411 Acquired absence of right great toe
CPT/HCPCS: 99213

== ENCOUNTER → 2025-05-12 11:42 | Outpatient (BNVA) | payer MEDICAID, SELFPAY ==
[2025-05-05 07:11] VITALS: BP 128/60; BMI 29.4
== END ==
PROVIDERS: PCP Family Medicine; Visit Provider Specialist
DX: G62.9 Polyneuropathy, unspecified (principal); E10.40 Type 1 diabetes mellitus with diabetic neuropathy, unspecified
CPT/HCPCS: 99214

== ENCOUNTER → 2025-05-15 07:46 | Outpatient (BNVA) | payer MEDICAID, SELFPAY ==
[2025-05-05 07:11] VITALS: BP 128/60; BMI 29.4
== END ==
PROVIDERS: PCP Family Medicine; Visit Provider Podiatrist Foot & Ankle Surgery
DX: Z98.890 Other specified postprocedural states (principal); Z89.411 Acquired absence of right great toe
CPT/HCPCS: 99024

== ENCOUNTER → 2025-05-21 07:46 | Outpatient (BNVA) | payer MEDICAID, SELFPAY ==
[2025-05-05 07:11] VITALS: BP 128/60; BMI 29.4
== END ==
PROVIDERS: PCP Family Medicine; Visit Provider Podiatrist Foot & Ankle Surgery
DX: Z98.890 Other specified postprocedural states (principal); Z89.411 Acquired absence of right great toe
CPT/HCPCS: 99213

== ENCOUNTER → 2025-05-29 09:42 | Outpatient (BNVA) | payer MEDICAID, SELFPAY ==
[2025-05-05 07:11] VITALS: BP 128/60; BMI 29.4
== END ==
PROVIDERS: PCP Family Medicine; Visit Provider Podiatrist Foot & Ankle Surgery
DX: Z98.890 Other specified postprocedural states (principal); E11.42 Type 2 diabetes mellitus with diabetic polyneuropathy; Z89.411 Acquired absence of right great toe; Z79.4 Long term (current) use of insulin
CPT/HCPCS: 99213

== ENCOUNTER → 2025-06-19 10:46 | Outpatient (BNVA) | payer MEDICAID, SELFPAY ==
[2025-05-05 07:11] VITALS: BP 128/60; BMI 29.4
== END ==
PROVIDERS: PCP Family Medicine; Visit Provider Podiatrist Foot & Ankle Surgery
DX: Z98.890 Other specified postprocedural states (principal); Z89.411 Acquired absence of right great toe; E11.42 Type 2 diabetes mellitus with diabetic polyneuropathy; Z79.4 Long term (current) use of insulin
CPT/HCPCS: 99213